=== PATIENT | female | born 1960 | race Caucasian/White ===

== ENCOUNTER → 2017-10-27 | Outpatient (CLI) | payer BC ==
[~2017-10-27] MED LIST: MINIVELL TD; NAPROSYN500 MG PO; SARAFEM20 M1 PO; SYNTHROID0.075 MG/T PO; WELLBUTRIN XL150 MG PO
== END ==
LOC: MC.RAD 14:13
DX: Z12.31 Encounter for screening mammogram for malignant neoplasm of breast (principal)

== ENCOUNTER → 2019-01-05 | Outpatient (CLI) | payer BC | LOC: MC.RAD 12-11 14:00 | DX: Z12.31 Encounter for screening mammogram for malignant neoplasm of breast (principal); N64.89 Other specified disorders of breast ==

== ENCOUNTER → 2019-01-08 | Outpatient (CLI) | payer BC | LOC: MC.RAD 12:30 | DX: N63.32 Unspecified lump in axillary tail of the left breast (principal) | CPT/HCPCS: G0279 ==

== ENCOUNTER → 2019-07-23 | Outpatient (CLI) | payer BC | LOC: MC.RAD 09:00 | DX: N63.21 Unspecified lump in the left breast, upper outer quadrant (principal) | CPT/HCPCS: G0279 ==

== ENCOUNTER 2020-03-05 15:15 | Outpatient (RCR) | payer BC | END 2020-04-01 | disposition home or self-care (01) | LOC: WSST | DX: J38.01 Paralysis of vocal cords and larynx, unilateral (principal) ==

== ENCOUNTER → 2020-11-17 | Outpatient (CLI) | payer BC | LOC: MC.RAD 13:40 | DX: Z12.31 Encounter for screening mammogram for malignant neoplasm of breast (principal); N63.10 Unspecified lump in the right breast, unspecified quadrant ==

== ENCOUNTER → 2020-11-18 | Outpatient (CLI) | payer BC | LOC: MC.RAD 13:41 | DX: N63.10 Unspecified lump in the right breast, unspecified quadrant (principal) ==

== ENCOUNTER → 2020-11-25 | Outpatient (CLI) | payer BC | LOC: MC.RAD 07:53 | DX: N63.10 Unspecified lump in the right breast, unspecified quadrant (principal) | CPT/HCPCS: A4648 ==

== ENCOUNTER 2020-12-23 14:00 | Outpatient (RCR) | payer BC | END 2021-03-15 | disposition home or self-care (01) | LOC: WSST | DX: R49.0 Dysphonia (principal); J38.01 Paralysis of vocal cords and larynx, unilateral ==

== ENCOUNTER → 2021-01-30 | Outpatient (CLI) | payer BC | LOC: COL.VAS 13:44 | DX: C50.211 Malignant neoplasm of upper-inner quadrant of right female breast (principal) ==

== ENCOUNTER → 2021-05-19 | Outpatient (CLI) | payer BC | LOC: COL.VAS 05-12 12:30 | DX: C50.211 Malignant neoplasm of upper-inner quadrant of right female breast (principal) ==

== ENCOUNTER 2021-05-22 13:59 | Outpatient (RCR) | payer BC ==
--- NOTE | 2021-05-22 08:24 | NUR ---
Sofi,Office nurse called this morning.Reports pt has apt in [place] today.Pt rescheduled for May 23
[2021-05-23] VITALS (12 sets, daily range): BP systolic 117–135; BP diastolic 64–83; PULSE 71–80; TEMP 98.1–98.8
--- NOTE | 2021-05-23 10:23 | NUR ---
Patient admitted to room 354. Alert & oriented. Express nurse Aidee assisted with port access. We reviewed signs & symptoms of transfusion reaction. Patient understanding. Consent obtained. Blood protocol followed & verifed with charge nurse Misti. Thisnurse to remain atr bedside
--- NOTE | 2021-05-23 11:11 | NUR ---
Patient continues to tolerate transfusion withou reaction. patient wanting to rest & take a nap at this time
--- NOTE | 2021-05-23 12:06 | NUR ---
Patient continues to tolerate transfusion this am. reading a book, priscilla velasquez.
--- NOTE | 2021-05-23 13:43 | NUR ---
Patient tolerated first unit of blood well, no sign or symptoms of reaction. She tolerated lunch. Second unit of blood started. blood protocol followed. Verified unit of blood with Sadia Logan. Infusion via port at 60ml/hr. Once again we reviewed signs and symptoms of reaction, this nurse to stay at bedside & monitor closely.
--- NOTE | 2021-05-23 15:28 | NUR ---
PATIENT CONTINUES TO TOLERATED BLOOD TRANSFUSION WITHOUT SIGNS OR SYMPTOMS OF REACTION, SHE IS WATCHING THE [employer] GAME AT THIS TIME. WILL CONTINUE TO MONITOR. VITALS REMAINS STABLE
--- NOTE | 2021-05-23 16:45 | NUR ---
Patient second unit of blood transfused. Tolerated without signs or symptoms or reaction. Port deaccess & flushed per protocol with heparin & ns
== END 2021-05-23 16:50 | disposition home or self-care (01) ==
LOC: EUO 13:59 → MEDICAL 05-23 08:47 → EUO 05-23 16:50
DX: C50.211 Malignant neoplasm of upper-inner quadrant of right female breast (principal)
CPT/HCPCS: OP; J1644; J7050; P9016

== ENCOUNTER → 2021-09-10 | Outpatient (CLI) | payer BC | LOC: ZCOL.LAB 17:04 | DX: S21.002A Unspecified open wound of left breast, initial encounter (principal) ==

== ENCOUNTER → 2021-09-28 | Outpatient (CLI) | payer BC | LOC: ZCOL.LAB 16:54 | DX: T81.40XA Infection following a procedure, unspecified, initial encounter (principal); S21.002A Unspecified open wound of left breast, initial encounter; X58.XXXA Exposure to other specified factors, initial encounter ==

== ENCOUNTER → 2021-10-12 | Outpatient (CLI) | payer BC | LOC: ZCOL.LAB 16:34 | DX: T81.40XA Infection following a procedure, unspecified, initial encounter (principal); S21.002A Unspecified open wound of left breast, initial encounter ==

== ENCOUNTER → 2021-10-14 | Outpatient (CLI) | payer BC | LOC: COL.VAS 12:32 | DX: Z51.11 Encounter for antineoplastic chemotherapy (principal); I34.0 Nonrheumatic mitral (valve) insufficiency ==

== ENCOUNTER → 2021-10-26 | Outpatient (CLI) | payer BC | LOC: ZCOL.LAB 16:54 | DX: S21.002A Unspecified open wound of left breast, initial encounter (principal); T81.40XA Infection following a procedure, unspecified, initial encounter ==

== ENCOUNTER → 2022-02-10 | Outpatient (CLI) | payer BC | LOC: COL.VAS 11:49 | DX: Z51.11 Encounter for antineoplastic chemotherapy (principal); C50.919 Malignant neoplasm of unspecified site of unspecified female breast ==